=== PATIENT | male | born 1990 | race Caucasian/White ===

== ENCOUNTER 2022-09-15 02:29 | Emergency (ER) | payer OTHER, SELFPAY ==
[2022-09-15 02:29] VITALS: BP 152/77; PULSE 73; RESP 16; TEMP 36.9; BMI 38.0
--- NOTE | 2022-09-15 02:57 | ED.VIS.BACK ---
HPI History of Present Illness Chief Complaint: Back Narrative Narrative: Patient has chronic right-sided back pain, tonight the pain migrated into his epigastric and right upper quadrant. Pain is not associated with eating. He has no nausea or vomiting. The pain is sharp and stabbing. He has no chest pain or shortness of breath. [facility] Home Medications NK 09/15/22 [History Last Taken Unknown] Allergy/AdvReac Type Severity Reaction Status Date / Time No Known Allergies Allergy Verified 09/15/22 02:32 Social History Smoking Status: Current every day smoker tobacco type: e-cigarettes ROS ROS ED ROS Narrative Past medical history: Reviewed Medications: Reviewed Social history: Noncontributory Review of systems: All systems negative except as indicated General: No fever Eyes: No visual changes ENT: No upper airway congestion, normal voice Neck: No neck pain Cardiovascular: No chest pain Respiratory: No shortness of breath or cough Gastrointestinal: As in HPI Genitourinary: No dysuria Musculoskeletal: Back pain as in HPI Skin: No rash Neurological: No memory loss, confusion or any focal weakness Psych: No recent behavioral changes Hematologic: No easy bleeding or easy bruising EXAM Physical Exam Narrative Exam Narrative: Physical exam General: Well nourished, Well developed, No Acute Distress Head: Normocephalic, Atraumatic Eyes: Conjunctiva not pale ENT: Moist mucous membranes Neck: Supple, Nontender, No lymphadenopathy Cardiovascular: Regular rate, Regular rhythm Respiratory: No distress, CTA bilaterally Abdomen: Soft, there is some epigastric tenderness, possibly some right upper quadrant pain but no guarding or rebound. Negative Lamb's. Back: Nontender, Normal Inspection. Negative for: CVA tenderness Extremities: Nontender, No edema Skin: Normal color, No rash Neurological: Alert, Normal Strength, Normal Sensation Psychological: Normal affect Const Vital Signs: 09/15/22 02:29 Temperature 98.4 F Temperature Source Temporal Pulse Rate 73 Respiratory Rate 16 Blood Pressure 152/77 H Blood Pressure Mean 102 Oxygen Delivery Method Room Air MDM MDM MDM Narrative Medical decision making narrative: Patient received Toradol, he is back pain is gone I will discharge in stable condition he can follow-up with PCP. Lab Data Labs: Laboratory Results - last 24 hr 09/15/22 09/15/22 03:10 03:10 WBC 7.1 RBC 5.02 Hgb 15.3 Hct 42.9 MCV 85.5 MCH 30.5 MCHC 35.7 RDW Std Deviation 37.9 RDW Coeff of Jarett 12.2 Plt Count 211 MPV 10.4 Immature Gran % (Auto) 0.400 Neut % (Auto) 49.2 Lymph % (Auto) 39.5 Upson % (Auto) 8.1 Eos % (Auto) 2.4 Baso % (Auto) 0.4 Absolute Neuts (auto) 3.5 Absolute Lymphs (auto) 2.79 Nucleated RBC % 0 Sodium 140 Potassium 3.5 Chloride 107 Carbon Dioxide 26.0 Anion Gap 7 BUN 15 Creatinine 0.98 Estim Creat Clear Calc 103.72 Est GFR (MDRD) Af Amer 113 Est GFR (MDRD) Non-Af 93 BUN/Creatinine Ratio 15.3 Glucose 105 Calcium 9.1 Total Bilirubin 0.30 AST 16 ALT 52 Alkaline Phosphatase 45 Total Protein 7.2 Albumin 4.2 Globulin 3.0 Albumin/Globulin Ratio 1.4 Lipase 267 Radiography Diagnostic Testing: Clinical Impression(s) from Imaging Studies Chest X-Ray 09/15/22 02:58 IMPRESSION: No acute cardiopulmonary disease. Electronically Signed: Wilfredo Oquendo MD at 3:31 EDT , Chest x-ray read by me and radiologist is negative Discharge Plan Triage Chief Complaint: Back ED Provider: Anthony Castellanos Dx/Rx/DC Orders Clinical Impression: Back pain, Abdominal pain Instructions: ED Back Pain (Acute or Chronic) Prescriptions: No Action NK Primary Care Provider: Care Physician,No Primary Referrals: Care Physician,No Primary [Primary Care Provider] - 3-5 Days Disposition Disposition: Home, Self Care
--- NOTE | 2022-09-15 02:58 | RAD_ITS ---
INDICATION: abd pain EXAMINATION/TECHNIQUE: X-RAY - XR Chest 1 View COMPARISON: None. FINDINGS: LINES/DEVICES: None. LUNGS: No consolidation, edema or effusion. No pneumothorax. MEDIASTINUM AND CARDIOVASCULAR STRUCTURES: Cardiac silhouette not enlarged. Central airways and mediastinal contour are unremarkable. BONES AND SOFT TISSUES: Unremarkable. RAD/Chest 1 View (Portable) IMPRESSION: No acute cardiopulmonary disease. Electronically Signed: Wilfredo Oquendo MD at 3:31 EDT ,
[2022-09-15] MEDS: Ketorolac 15 MG/ML Vial IV (03:16)
[2022-09-15 03:29] LABS: Absolute Lymphocyte Count 2.79 X10^3/uL (0.83-4.51); Absolute Neutrophil Count 3.5 X10^3/uL (2.0-7.7); Basophil# 0.03 X10^3/uL; Basophil% 0.4 % (0-1); Eosinophil# 0.17 X10^3/uL; Eosinophils% 2.4 % (0-5); Hematocrit 42.9 % (40-54); Hemoglobin 15.3 g/dL (13.0-16.5); Lymphocyte # 2.79 X10^3/ul (0.83-4.51); Lymphocyte % 39.5 % (19-41); Mean Corp Hgb Conc 35.7 g/dL (32-36); Mean Corpuscular Hgb 30.5 pg (27.0-32.0); Mean Corpuscular Volume 85.5 fL (80-94); Mean Platelet Vol. 10.4 fl (6.2-12.0); Monocyte# 0.57 X10^3/uL; Monocyte% 8.1 % (0-10); NRBC Flagged by Analyzer 0 % (0-5); Neutrophil # 3.47 X10^3/uL (2.7-7.7); Neutrophil % 49.2 % (47-70); Platelet Count 211 K/mm3 (150-450); RBC Distribution Width CV 12.2 % (11.6-14.6); RBC Distribution Width SD 37.9 fl (35.1-43.9); Red Blood Count 5.02 M/mm3 (4.6-6.2); White Blood Count 7.1 K/mm3 (4.4-11.0)
[2022-09-15 03:39] LABS: ALB/GLOB Ratio 1.4 RATIO (0.9-2.4); AST(SGOT) 16 U/L (15-37); Alanine Aminotransfer ALT/SGPT 52 U/L (16-61); Albumin, Serum 4.2 g/dL (3.2-5.0); Alkaline Phosphatase 45 U/L (45-117); Anion Gap 7 (5-15); BUN 15 mg/dL (7-18); BUN/Creat Ratio 15.3 RATIO (10-20); Calcium,Total 9.1 mg/dL (8.5-10.1); Chloride 107 mmol/L (98-107); Creatinine, Serum 0.98 mg/dL (0.70-1.30); EST Glomerular Filtration Rate 93 mL/min (>60); Est Glom Filt Rate - Afr Amer 113 mL/min (>60); Estimated Creatinine Clearance 103.72 ml/min; Glucose 105 mg/dL (74-106); Lipase 267 U/L (73-393); Potassium 3.5 mmol/L (3.5-5.1); Protein, Total 7.2 g/dL (6.4-8.2); Sodium Level 140 mmol/L (136-145)
[2022-09-15 04:11] VITALS: BP 144/75; PULSE 68; RESP 17; O2SAT 98
== END 2022-09-15 04:11 | disposition home or self-care (01) ==
PROVIDERS: Emergency Provider Emergency Medicine; Visit Provider Emergency Medicine
DX: M54.9 Dorsalgia, unspecified (principal); R10.9 Unspecified abdominal pain; G89.29 Other chronic pain; F17.290 Nicotine dependence, other tobacco product, uncomplicated
CPT/HCPCS: 71045; 80053; 83690; 85025; 96374; 99284; A4216

== ENCOUNTER → 2023-01-13 | Outpatient (CLI) | payer BC, SELFPAY ==
[2023-01-13 10:27] LABS: Anion Gap 8 (5-15); BUN 14 mg/dL (7-18); BUN/Creat Ratio 13.6 RATIO (10-20); Calcium,Total 9.5 mg/dL (8.5-10.1); Chloride 104 mmol/L (98-107); Cholesterol 160 mg/dL (200); Creatinine, Serum 1.03 mg/dL (0.70-1.30); EST Glomerular Filtration Rate 88 mL/min (>60); Est Glom Filt Rate - Afr Amer 106 mL/min (>60); Glucose 94 mg/dL (74-106); High Density Lipoprotein 31 mg/dL; Potassium 4.1 mmol/L (3.5-5.1); Sodium Level 139 mmol/L (136-145); Thyroid Stim Hormone (TSH) 0.98 uIU/mL (0.358-3.74); Triglycerides 116 mg/dL; Very Low Density Lipoprotein 23 mg/dL (5-40)
== END | disposition home or self-care (01) ==
LOC: LAB 08:59
PROVIDERS: Referring Provider Internal Medicine Cardiovascular Disease; Visit Provider Internal Medicine Cardiovascular Disease
DX: R00.2 Palpitations (principal); R07.9 Chest pain, unspecified
CPT/HCPCS: 36415; 80048; 80061; 84443

== ENCOUNTER → 2023-01-19 | Outpatient (CLI) | payer BC, SELFPAY ==
--- NOTE | 2023-01-19 08:45 | ECHOD_ITS ---
Reason For Study: CHEST PAIN Procedure This was a 2D Doppler, Color Flow transthoracic echocardiogram. Exam performed in department. Left Ventricle Mild concentric left ventricular hypertrophy. Normal LV size. The left ventricular ejection fraction is 65 %. Normal diastololic function. Right Ventricle Normal right ventricle. Atria Normal left atrium. Normal right atrium. Bubble contrast study is positive for PFO. Mitral Valve The mitral valve is structurally normal. No prolapse or stenosis seen. Tricuspid Valve Trivial tricuspid valve insufficiency. Unable to estimate RV systolic pressure due to insufficient tricuspid regurgitant envelope. Aortic Valve Trisinus/trileaflet aortic valve. Trivial aortic valve insufficiency. Pulmonic Valve The pulmonic valve is not well visualized. Great Vessels Normal sized aortic root. Pericardium/Pleural No pericardial effusion. Medication 22 gauge I.V. with prn adaptor inserted into right arm. Performed a rapid injection of agitated mix of 9 cc saline and 1cc air to assess for atrial septal defect. MMode/2D Measurements & Calculations LVIDd: 4.6 cm IVSd: 1.3 cm LVOT diam: 2.0 cm LVIDs: 3.1 cm LVPWd: 0.79 cm RVDd: 4.0 cm FS: 33.6 % LVOT area: 3.3 cm2 Ao root diam: 2.9 cm LAV(MOD-bp): 46.2 ml LVAd ap4: 30.1 cm2 LAV(MOD-bp) Indexed: 21.4 ml/m2 LVLd ap4: 9.3 cm LAV(MOD-sp2): 49.0 ml EDV(MOD-sp4): 81.4 ml LAV(MOD-sp4): 38.0 ml EDV(sp4-el): 83.1 ml LVAs ap4: 16.2 cm2 LVLs ap4: 7.3 cm ESV(MOD-sp4): 30.5 ml ESV(sp4-el): 30.3 ml EF(MOD-sp4): 62.6 % EF(sp4-el): 63.5 % LVAd ap2: 34.4 cm2 SV(MOD-sp4): 51.0 ml SV(MOD-sp2): 71.2 ml LVLd ap2: 9.0 cm EDV(MOD-sp2): 111.7 ml EDV(sp2-el): 111.8 ml LVAs ap2: 17.7 cm2 LVLs ap2: 7.1 cm ESV(MOD-sp2): 40.6 ml ESV(sp2-el): 37.6 ml EF(MOD-sp2): 63.7 % SV(sp4-el): 52.8 ml LA A4 area: 16.8 cm2 RA A4 area: 14.6 cm2 Time Measurements MV dec time: 0.18 sec Doppler Measurements & Calculations MV E max valentino: 100.4 cm/sec Lat Peak E' Valentino: 19.1 cm/sec Med Peak E' Valentino: 12.9 cm/sec MV A max valentino: 50.4 cm/sec E/E' lat: 5.2 E/E' med: 7.8 MV E/A: 2.0 MV dec slope: 569.2 cm/sec2 Ao V2 max: 142.6 cm/sec LV V1 max: 128.8 cm/sec Ao max P.1 mmHg LV V1 max P.6 mmHg Ao V2 mean: 95.2 cm/sec LV V1 mean P.1 mmHg Ao mean P.2 mmHg LV V1 mean: 79.9 cm/sec Ao V2 VTI: 29.3 cm LV V1 VTI: 24.9 cm AV (velocity ratio): 0.85 MARLENE(I,D): 2.8 cm2 MARLENE(V,D): 3.0 cm2 SV(LVOT): 81.7 ml PA V2 max: 139.2 cm/sec PA max PG (full): 4.3 mmHg ECHO/Echo Complete Interpretation Summary Mild concentric left ventricular hypertrophy. The left ventricular ejection fraction is 65 %. Bubble contrast study suggestive of tiny PFO. Ordering Physician: Mariah Mcclure Referring Physician: Mariah Mcclure Performed By: Shahana Curran
== END | disposition home or self-care (01) ==
LOC: CVS 08:44
PROVIDERS: Referring Provider Internal Medicine Cardiovascular Disease; Visit Provider Internal Medicine Cardiovascular Disease
DX: R07.9 Chest pain, unspecified (principal); R00.2 Palpitations
CPT/HCPCS: 93306; A4216